=== PATIENT | male | born 1995 ===

== ENCOUNTER 2017-10-23 20:11 | Emergency (ER) | payer SELFPAY ==
[2017-10-23 20:21] VITALS: BMI 17.8
--- NOTE | 2017-10-23 21:42 | ED PDOC ---
HPI: Chest Pain Time Seen by Provider: 10/23/17 20:28 Chief Complaint (Nursing): Shortness Of Breath Chief Complaint (Provider): Chest Pain History Per: Patient History/Exam Limitations: no limitations Onset/Duration Of Symptoms: Days (x1 week) Current Symptoms Are (Timing): Still Present Quality: Sharp Additional Complaint(s): 30 year old male with no significant past medical history presents to the ED with sharp chest pain onset one week. He reports he has intermittent episodes of non radiating chest pain that is worse with inspiration. Patient denies shortness of breath, cough, congestion, fever, leg pain, swelling or any other medical complaints. PMD: none provided Past Medical History Reviewed: Historical Data, Nursing Documentation, Vital Signs Vital Signs: Last Vital Signs Temp 98.3 F 10/23/17 20:19 Pulse 61 10/23/17 20:19 Resp 16 10/23/17 20:19 BP 117/70 10/23/17 20:19 Pulse Ox 100 10/23/17 21:44 - Medical History PMH: No Chronic Diseases - Surgical History Surgical History: No Surg Hx - Family History Family History: States: Unknown Family Hx - Social History Current smoker - smoking cessation education provided: No Ex-Smoker (has not smoked in the last 12 months): No Drugs: Denies - Home Medications Home Medications: Ambulatory Orders Medication Instructions Recorded Naproxen [Naprosyn] 500 mg PO Q12H #20 tab 10/23/17 - Allergies Allergies/Adverse Reactions: Allergies Allergy/AdvReac Type Severity Reaction Status Date / Time No Known Allergies Allergy Verified 10/23/17 20:18 Review of Systems ROS Statement: Except As Marked, All Systems Reviewed And Found Negative Constitutional: Negative for: Fever Cardiovascular: Positive for: Chest Pain Respiratory: Negative for: Cough, Shortness of Breath Musculoskeletal: Negative for: Leg Pain Physical Exam - Reviewed Nursing Documentation Reviewed: Yes Vital Signs Reviewed: Yes - Physical Exam Appears: Positive for: Non-toxic, No Acute Distress Head Exam: Positive for: ATRAUMATIC, NORMOCEPHALIC Skin: Positive for: Normal Color, Warm, Dry Eye Exam: Positive for: EOMI, Normal appearance, PERRL Neck: Positive for: Normal, Painless ROM, Supple Cardiovascular/Chest: Positive for: Regular Rate, Rhythm. Negative for: Murmur Respiratory: Positive for: Normal Breath Sounds. Negative for: Respiratory Distress Gastrointestinal/Abdominal: Positive for: Normal Exam, Soft. Negative for: Tenderness Extremity: Positive for: Normal ROM (upper and lower) Neurologic/Psych: Positive for: Alert, Oriented (x3). Negative for: Motor/ Sensory Deficits - ECG O2 Sat by Pulse Oximetry: 100 (RA) Pulse Ox Interpretation: Normal Medical Decision Making Medical Decision Making: Time: 20:23 Initial Plan: --EKG --Troponin --CXR Scribe Attestation: Documented by Mary Bailey, acting as a scribe for Bernardino Thomas MD Provider Scribe Attestation: All medical record entries made by the Scribe were at my direction and personally dictated by me. I have reviewed the chart and agree that the record accurately reflects my personal performance of the history, physical exam, medical decision making, and the department course for this patient. I have also personally directed, reviewed, and agree with the discharge instructions and disposition. Disposition - Clinical Impression Clinical Impression: Pleuritic chest pain - Patient ED Disposition Is Patient to be Admitted: No Counseled Patient/Family Regarding: Studies Performed, Diagnosis, Need For Followup, Rx Given - Disposition Referrals: [facility] [Outside] Disposition: Routine/Home Disposition Time: 22:21 Condition: FAIR Prescriptions: Naproxen [Naprosyn] 500 mg PO Q12H #20 tab Instructions: Pleuritic Chest Pain Forms: [employer] (Slovenian)
[2017-10-24 00:11] VITALS: RESP 18
[2017-10-24 00:12] VITALS: O2SAT 100
[2017-10-24 00:13] VITALS: BP 124/72; PULSE 64; TEMP 98
--- NOTE | 2017-10-24 09:07 | RAD ---
HISTORY: Chest pain COMPARISON: No prior. TECHNIQUE: Chest PA and lateral FINDINGS: LUNGS: No active pulmonary disease. PLEURA: No significant pleural effusion identified. No pneumothorax apparent. CARDIOVASCULAR: Normal. OSSEOUS STRUCTURES: No significant abnormalities. VISUALIZED UPPER ABDOMEN: Normal. OTHER FINDINGS: None. IMPRESSION: No active disease.
--- NOTE | 2017-10-24 09:46 | CARD ---
APPROVED REPORT EKG Measurement Heart [id number] <Conclusion> Normal sinus rhythm Rightward axis Incomplete right bundle branch block Borderline ECG
== END 2017-10-23 23:20 | disposition home or self-care (01) ==
LOC: EDBD 20:11 → H.ER 20:11 → MERGE 20:11 → H.ER 23:20
DX: R07.1 Chest pain on breathing (principal)

== ENCOUNTER 2018-05-29 13:04 | Emergency (ER) | payer OTHER ==
[2018-05-29 13:05] VITALS: BMI 17.8
[2018-05-29 13:21] VITALS: BP 111/74; PULSE 63; RESP 18; TEMP 97.8; O2SAT 100
--- NOTE | 2018-05-29 13:57 | ED PDOC ---
HPI: Abdomen Time Seen by Provider: 05/29/18 13:19 Chief Complaint (Nursing): Abdominal Pain Chief Complaint (Provider): Abdominal Pain History Per: Patient History/Exam Limitations: no limitations Location Of Pain/Discomfort: Epigastric, LUQ Associated Symptoms: denies: Fever, Vomiting, Diarrhea Additional Complaint(s): 22 year old male with a past medical history of ADHD, presents to the emegency department complaining of a brief episode of epigastric and LUQ pain earlier today. Patient states that he took x2 Tylenols today that relieved the pain. He attributes the pain to adderall that he has started to take in the past x2 weeks. Patient denies vomiting, diarrhea, or fever. PMD: No provider Past Medical History Reviewed: Historical Data, Nursing Documentation, Vital Signs Vital Signs: Last Vital Signs Temp 97.8 F 05/29/18 13:19 Pulse 63 05/29/18 13:19 Resp 18 05/29/18 13:19 BP 111/74 05/29/18 13:19 Pulse Ox 100 05/29/18 13:19 - Medical History PMH: No Chronic Diseases - Surgical History Surgical History: No Surg Hx - Family History Family History: States: Unknown Family Hx - Home Medications Home Medications: Ambulatory Orders Medication Instructions Recorded Naproxen [Naprosyn] 500 mg PO Q12H #20 tab 10/23/17 Famotidine [Pepcid] 20 mg PO Q12 #20 tab 05/29/18 - Allergies Allergies/Adverse Reactions: Allergies Allergy/AdvReac Type Severity Reaction Status Date / Time No Known Allergies Allergy Verified 05/29/18 13:19 Review of Systems ROS Statement: Except As Marked, All Systems Reviewed And Found Negative Constitutional: Negative for: Fever Gastrointestinal: Positive for: Abdominal Pain (epigastric and LUQ). Negative for: Vomiting, Diarrhea Physical Exam - Reviewed Nursing Documentation Reviewed: Yes Vital Signs Reviewed: Yes - Physical Exam Appears: Positive for: Non-toxic, No Acute Distress Head Exam: Positive for: ATRAUMATIC, NORMOCEPHALIC Skin: Positive for: Normal Color, Warm, Dry Eye Exam: Positive for: Normal appearance, EOMI, PERRL ENT: Positive for: Normal ENT Inspection Neck: Positive for: Normal, Painless ROM, Supple Cardiovascular/Chest: Positive for: Regular Rate, Rhythm. Negative for: Murmur Respiratory: Positive for: Normal Breath Sounds. Negative for: Respiratory Dist ress Gastrointestinal/Abdominal: Positive for: Normal Exam, Soft. Negative for: Tenderness Back: Positive for: Normal Inspection. Negative for: L CVA Tenderness, R CVA Tenderness, Vertebral Tenderness Extremity: Positive for: Normal ROM. Negative for: Pedal Edema, Deformity Neurologic/Psych: Positive for: Alert, Oriented. Negative for: Motor/Sensory Deficits - ECG O2 Sat by Pulse Oximetry: 100 (RA) Pulse Ox Interpretation: Normal Medical Decision Making Medical Decision Making: Time: 1318 Impression: transient gastritis Plan: --Patient will take adderall and will observed to see if symptoms report. Scribe Attestation: Documented by Filippo Laguna, acting as a scribe for Bernardino Thomas MD. Provider Scribe Attestation: All medical record entries made by the Scribe were at my direction and person ally dictated by me. I have reviewed the chart and agree that the record accurately reflects my personal performance of the history, physical exam, medical decision making, and the department course for this patient. I have also personally directed, reviewed, and agree with the discharge instructions and disposition. Disposition - Clinical Impression Clinical Impression: Gastritis - Patient ED Disposition Is Patient to be Admitted: No Counseled Patient/Family Regarding: Diagnosis, Need For Followup, Rx Given - Disposition Referrals: [facility] [Outside] Disposition: Routine/Home Disposition Time: 14:25 Condition: FAIR Prescriptions: Famotidine [Pepcid] 20 mg PO Q12 #20 tab Instructions: Gastritis Forms: [employer] (Yakut)
== END 2018-05-29 14:30 | disposition home or self-care (01) ==
LOC: H.ER 13:04
DX: K29.70 Gastritis, unspecified, without bleeding (principal); F90.9 Attention-deficit hyperactivity disorder, unspecified type